=== PATIENT | male | born 1995 | race Hispanic/Latino ===

== ENCOUNTER 2025-02-06 10:00 | Day surgery (SDC) | payer OTHER ==
[~2025-02-06] VITALS: Ht 170 cm; Wt 88.0 kg
[~2025-02-06 10:00] MED LIST: IBLOOD GLUCOSE TEST STRIP 1 EA TEST VI PRN; LACTATED RINGER'S 1,000 ML IV SCH; LIDOCAINE HCL 1% 5 ML SDV INJ ONE; PRILOSEC OTC20 MG PO
[2025-02-06] MEDS ORDERED: CHOLESTYRAMINE378 GM PO (10:07)
[2025-02-06] MEDS ORDERED: LIDOCAINE HCL 2% 5 ML SDV ONE (10:12)
[2025-02-06 10:15] VITALS: BP 128/68
--- NOTE | 2025-02-06 11:13 | NUR ---
02/06/25 1113 Ariadna Anguiano PT TO PACU SLEEPING O2 VIA MASK FOGGING NOTED IN MASK
[2025-02-06 11:39] VITALS: BP 112/72
--- NOTE | 2025-02-10 18:18 | PATH ---
[facility] [address] [place], [place] [address] Signed SPECIMEN(S): A CECUM BIOPSY SPECIMEN(S): B TERMINAL ILEUM BIOPSY SPECIMEN(S): C PROXIMAL ASCENDING BIOPSY SPECIMEN(S): D DISTAL ASCENDING BIOPSY SPECIMEN(S): E PROXIMAL TRANSVERSE BIOPSY SPECIMEN(S): F MID TRANSVERSE BIOPSY SPECIMEN(S): G SPLENIC FLEXURE BIOPSY SPECIMEN(S): H DESCENDING BIOPSY SPECIMEN(S): I SIGMOID BIOPSY SPECIMEN(S): J RECTUM BIOPSY SPECIMEN SOURCE: A. CECUM BIOPSY B. TERMINAL ILEUM BIOPSY C. PROXIMAL ASCENDING BIOPSY D. DISTAL ASCENDING BIOPSY E. PROXIMAL TRANSVERSE BIOPSY F. MID TRANSVERSE BIOPSY G. SPLENIC FLEXURE BIOPSY H. DESCENDING BIOPSY I. SIGMOID BIOPSY J. RECTUM BIOPSY CLINICAL HISTORY: Chronic diarrhea. FINAL PATHOLOGIC DIAGNOSIS: A. Cecum biopsy: - Morphologic features most consistent with lymphocytic colitis. B. Terminal ileum biopsy - Small intestinal mucosa with features most consistent with lymphocytic ileitis. C. Proximal ascending biopsy - Morphologic features consistent with lymphocytic colitis. D- Distal ascending biopsy - Morphologic features consistent with lymphocytic colitis. E. Proximal transverse biopsy - Colonic mucosa with no significant pathologic abnormalities. - Negative for significant inflammation or dysplasia. F. Mid transverse biopsy - Morphologic features most consistent with lymphocytic colitis. PATIENT NAME: KRYSTIN VALENCIA PATHOLOGY DATE OF : [birth year] REPORT #: [id number] PHYSICIAN: INCYTE PATHOLOGY PCP: UNASSIGNED DOCTOR REPORT IS CONFIDENTIAL AND NOT TO BE RELEASED WITHOUT AUTHORIZATION [facility] [address], [place] [address] Signed - Mild mucosal eosinophilia. G. Splenic flexure biopsy - Morphologic features most consistent with lymphocytic colitis. - Mild mucosal eosinophilia. H. Descending biopsy - Morphologic features most consistent with lymphocytic colitis. - Mild mucosal eosinophilia. I. Sigmoid biopsy - Morphologic features most consistent with lymphocytic colitis. - Mild mucosal eosinophilia. J. Rectum biopsy - Morphologic features most consistent with lymphocytic colitis with mild increase in eosinophils COMMENT: The colon biopsies show patchy areas of chronic inflammation with increased number of inflammatory cells within the lamina propria and increase in intraepithelial lymphocytes as confirmed by stain for CD3 performed on blocks A1, C1, G1, and H1. Findings are most consistent with lymphocytic colitis. Slight increase in eosinophils is also noted, most suggestive of medication associated changes, parasite infection or allergic intolerance. Clinical correlation with patient history, medication, and possible food allergies will be helpful. Features worrisome for inflammatory bowel disease are not identified. NA MICROSCOPIC EXAMINATION: Histologic sections of all submitted blocks are examined by light microscopy. These findings, together with the gross examination, support the pathologic diagnosis. GROSS DESCRIPTION: A. The specimen, labeled and designated "Archer Angie, cecum biopsy," is received in formalin and consists of one saeed soft tissue fragment, 0.5 cm. Entirely submitted in (A1). B. The specimen, labeled and designated "Archer Angie, terminal ileum biopsy," is received in formalin and consists of one saeed soft tissue fragment, 0.4 cm. Entirely submitted in (B1). C. The specimen, labeled and designated "Archer Angie, proximal ascending biopsy," is received in formalin and consists of one saeed soft tissue fragment, PATIENT NAME: KRYSTIN VALENCIA PATHOLOGY DATE OF : [birth year] REPORT #: [id number] PHYSICIAN: APRIL PATHOLOGY PCP: UNASSIGNED DOCTOR REPORT IS CONFIDENTIAL AND NOT TO BE RELEASED WITHOUT AUTHORIZATION [facility] [address], [place] [address] Signed 1.2 cm. Entirely submitted in (C1). D. The specimen, labeled and designated "Archer Angie, distal ascending biopsy," is received in formalin and consists of one saeed soft tissue fragment, 0.6 cm. Entirely submitted in (D1). E. The specimen, labeled and designated "Archer Angie, proximal transverse biopsy," is received in formalin and consists of one saeed soft tissue fragment, 1.2 cm. Entirely submitted in (E1). F. The specimen, labeled and designated "Archer Angie, mid transverse biopsy," is received in formalin and consists of one saeed soft tissue fragment, 0.4 cm. Entirely submitted in (F1). G. The specimen, labeled and designated "Archer Angie, splenic flexure biopsy," is received in formalin and consists of one saeed soft tissue fragment, 0.4 cm. Entirely submitted in (G1). H. The specimen, labeled and designated "Archer Angie, descending biopsy," is received in formalin and consists of one saeed soft tissue fragment, 0.4 cm. Entirely submitted in (H1). I. The specimen, labeled and designated "Archer Angie, sigmoid biopsy," is received in formalin and consists of one saeed soft tissue fragment, 0.5 cm. Entirely submitted in (I1). J. The specimen, labeled and designated "Suzi Adams, rectum biopsy," is received in formalin and consists of one saeed soft tissue fragment, 0.5 cm. Entirely submitted in (J1). VB (under the direct supervision of a pathologist) The Gross Description was prepared using a voice recognition system. The report was reviewed for accuracy; however, sound-alike word errors, addition and/or deletions may occur. If there is any question about this report, please contact Client Services. ADDITIONAL NOTES: Immunohistochemical and/or in situ hybridization studies if performed in this case included appropriate positive controls that reacted as expected. This test was developed and its performance characteristics determined by [employer] It has not been cleared or approved by the U.S. Food and Drug Administration. The FDA has determined that such clearance or approval is not necessary. This test is used for clinical purposes. It should not be regarded as investigational or for research. [employer] is certified under the Clinical Laboratory Improvement Amendments of 1988 (CLIA) as qualified to perform high complexity clinical laboratory testing. PATIENT NAME: KRYSTIN VALENCIA PATHOLOGY DATE OF : [birth year] REPORT #: [id number] PHYSICIAN: APRIL FATIMA PCP: UNASSIGNED DOCTOR REPORT IS CONFIDENTIAL AND NOT TO BE RELEASED WITHOUT AUTHORIZATION [facility] [address] [place] [id number] Signed PERFORMING LABORATORY: Technical component was performed by [facility], [address] [place] [address] (CLIA# [id number]). Professional interpretation was performed by [facility] - [facility], [address] [place] [address] (CLIA#: [id number]). Diagnostician: Nae Oviedo MD Pathologist Electronically Signed 02/10/2025 Copies: ~ PATIENT NAME: KRYSTIN VALENCIA PATHOLOGY DATE OF : [birth year] REPORT #: [id number] PHYSICIAN: APRIL PATHOLOGY PCP: UNASSIGNED DOCTOR REPORT IS CONFIDENTIAL AND NOT TO BE RELEASED WITHOUT AUTHORIZATION
== END 2025-02-06 11:48 | disposition home or self-care (01) ==
LOC: DS 10:00 → OPS 10:00 → DS 10:15 → OPS 11:30 → DS 12:10 → OPS 12:10
PROVIDERS: ATTEND Surgery
PROC: 0DBL8ZX Excision of Transverse Colon, Via Natural or Artificial Opening Endoscopic, Diagnostic (ICD-10-PCS; 2025-02-06)
PROC: 0DBN8ZX Excision of Sigmoid Colon, Via Natural or Artificial Opening Endoscopic, Diagnostic (ICD-10-PCS; 2025-02-06)
PROC: 0DBP8ZX Excision of Rectum, Via Natural or Artificial Opening Endoscopic, Diagnostic (ICD-10-PCS; 2025-02-06)
PROC: 0DBB8ZX Excision of Ileum, Via Natural or Artificial Opening Endoscopic, Diagnostic (ICD-10-PCS; 2025-02-06)
PROC: 0DBM8ZX Excision of Descending Colon, Via Natural or Artificial Opening Endoscopic, Diagnostic (ICD-10-PCS; 2025-02-06)
PROC: 0DBH8ZX Excision of Cecum, Via Natural or Artificial Opening Endoscopic, Diagnostic (ICD-10-PCS; 2025-02-06)
PROC: 0DBK8ZX Excision of Ascending Colon, Via Natural or Artificial Opening Endoscopic, Diagnostic (ICD-10-PCS; principal; 2025-02-06 08:30)
DX: K52.82 Eosinophilic colitis (principal); K63.89 Other specified diseases of intestine; K64.8 Other hemorrhoids
CPT/HCPCS: 00811; 88305; 88342; J2003; J2704